=== PATIENT | female | born 1990 | race Caucasian/White ===

== ENCOUNTER 2018-10-26 17:02 | Emergency (ER) | payer OTHER ==
[2018-10-26] MEDS ORDERED: NORMAL SALINE 1000 ML 1,000 ML IV ONE (18:42)
[2018-10-26] MEDS ORDERED: ONDANSETRON HCL INJ/PF 4 MG/2 ML SDV IV ONE (18:42)
--- NOTE | 2018-10-26 18:43 | ER Document Report ---
ED Medical Screen (RME) - General Chief Complaint: Flank Pain Stated Complaint: STOMACH PAIN Time Seen by Provider: 10/26/18 18:42 Notes: Patient is a morbidly obese 27-year-old female presents to the emergency department with general abdominal pain Since Saturday. States it is "everywhere." Patient states she had multiple episodes of vomiting and diarrhea denying blood in both. Patient's denying any fever or vaginal discharge. She is complaining of some generalized lower back pain and dysuria. Patient does have a history of a cholecystectomy, appendectomy, 3 surgeries for endometriosis. States she also has a history of pancreatitis. States this does not feel like her endometriosis because her pain is not in her pelvic region. Patient is unsure of her last menstrual cycle she has an IUD. GENERAL: Alert, interacts well. No acute distress. ABDOMEN: Soft, Non-distended. Bowel sounds present in all 4 quadrants. Generalized tenderness noted all 4 quadrants BACK: no cervical, thoracic, lumbar midline tenderness. No saddle anesthesia, normal distal neurovascular exam. I have greeted and performed a rapid initial assessment of this patient. A comprehensive ED assessment and evaluation of the patient, analysis of test results and completion of the medical decision making process will be conducted by additional ED providers. I have specifically instructed the patient or family members with the patient to immediately return to any nursing staff should anything change in the patient's condition or with their chief complaint. This medical record was dictated with voice recognizing software. There may be grammatical, syntax errors that are unintended. TRAVEL OUTSIDE OF THE [place] IN LAST 30 DAYS: No - Related Data Allergies/Adverse Reactions: No Known Allergies Allergy (Verified 10/26/18 17:16) Physical Exam - Vital signs Vitals: Temp Pulse Resp BP Pulse Ox 98.3 F 82 15 133/80 H 97 10/26/18 17:19 10/26/18 17:19 10/26/18 17:19 10/26/18 17:19 10/26/18 17:19 Course - Vital Signs Vital signs: Temp Pulse Resp BP Pulse Ox 98.3 F 82 15 133/80 H 97 10/26/18 17:19 10/26/18 17:19 10/26/18 17:19 10/26/18 17:19 10/26/18 17:19
[2018-10-26 19:29] LABS: ABSOLUTE BASOPHILS # (AUTO) 0.1 10^3/uL (0.0-0.2); ABSOLUTE EOSINOPHILS # (AUTO) 0.1 10^3/uL (0.0-0.6); ABSOLUTE MONOCYTES (AUTO) 0.6 10^3/uL (0.1-1.4); ABSOLUTE NEUT (AUTO) 4.5 10^3/uL (1.7-8.2); BASOPHILS % (AUTO) 0.8 % (0-2); EOSINOPHILS % (AUTO) 1.3 % (0-6); LYMPHOCYTES % (AUTO) 36.3 % (13-45); MEAN CORPUSCULAR HEMOGLOBIN 29.7 pg (27.0-33.4); MEAN CORPUSCULAR HGB CONC 33.4 g/dL (32.0-36.0); MEAN CORPUSCULAR VOLUME 89 fl (80-97); MONOCYTES % (AUTO) 6.8 % (3-13); PLATELET COUNT 309 10^3/uL (150-450); RED BLOOD COUNT 5.06 10^6/uL (3.72-5.28); RED CELL DISTRIBUTION WIDTH 13.9 % (11.5-14.0); SEGMENTED NEUTROPHILS % (AUTO) 54.8 % (42-78); TOTAL CELLS COUNTED % (AUTO) 100 %; WHITE BLOOD COUNT 8.1 10^3/uL (4.0-10.5)
[2018-10-26 19:39] LABS: AMORPHOUS SEDIMENT,URINE TRACE /HPF; APPEARANCE,URINE SLIGHTLY-CLOUDY; BILIRUBIN,URINE NEGATIVE (NEGATIVE); COLOR,URINE YELLOW; GLUCOSE, URINE NEGATIVE (NEGATIVE); KETONES,URINE NEGATIVE (NEGATIVE); LEUKOCYTE ESTERASE,URINE TRACE (NEGATIVE); NITRITE,URINE NEGATIVE (NEGATIVE); PROTEIN,URINE NEGATIVE (NEGATIVE); URINE SPECIFIC GRAVITY 1.016; UROBILINOGEN,URINE NEGATIVE mg/dL (<2.0)
[2018-10-26 19:45] LABS: ALANINE AMINOTRANSFERASE 21 U/L (9-52); ALBUMIN 4.7 g/dL (3.5-5.0); ALKALINE PHOSPHATASE 85 U/L (38-126); ANION GAP 9 (5-19); ASPARTATE AMINO TRANSFERASE 20 U/L (14-36); BILIRUBIN,DIRECT 0.2 mg/dL (0.0-0.4); BILIRUBIN,TOTAL 0.3 mg/dL (0.2-1.3); BLOOD UREA NITROGEN 12 mg/dL (7-20); CALCIUM 9.9 mg/dL (8.4-10.2); CARBON DIOXIDE 24 mmol/L (22-30); CHLORIDE 108 mmol/L (98-107); GLUCOSE 104 mg/dL (75-110); LIPASE 110.6 U/L (23-300); POTASSIUM 4.2 mmol/L (3.6-5.0); SODIUM 141.3 mmol/L (137-145); TOTAL PROTEIN 7.7 g/dL (6.3-8.2)
[2018-10-26] MEDS ORDERED: KETOROLAC TROMETHAMINE INJ/PF 30 MG/1 ML SDV IV ONE (21:17)
[2018-10-26] MEDS ORDERED: DICYCLOMINE HCL INJ 20 MG/2 ML AMPULE IM ONE (21:17)
[2018-10-26] MEDS ORDERED: CIPROFLOXACIN HCL 500 MG TABLET PO ONE (21:18)
[2018-10-26] MEDS ORDERED: ONDANSETRON ODT 4 MG TAB (6 TAB/ER DISP) PO PRN (21:20)
--- NOTE | 2018-10-26 21:21 | ER Document Report ---
ED General - General Chief Complaint: Flank Pain Stated Complaint: STOMACH PAIN Time Seen by Provider: 10/26/18 18:42 Primary Care Provider: GABY VALADEZ MD [Primary Care Provider] - Follow up in 3-5 days Notes: Patient is a 27-year-old female with past medical history of endometriosis, prior surgical history of appendectomy, cholecystectomy, 3 separate surgeries for her endometriosis who presents with 1 week of generalized abdominal cramping, nausea, vomiting and diarrhea. States that her symptoms started gra dually, but ongoing since that time. Nothing seems to improve or worsen her symptoms. States that she has been able to tolerate oral intake in between her episodes of vomiting. No melena, hematochezia or hematemesis. Describes abdominal cramping as being a moderate to severe intensity, generalized in nature. Has not seen her primary care physician regarding today's concerns. Denies any history of similar symptoms in the past. No fever or constitutional symptoms. No known history of similar symptoms in the past. TRAVEL OUTSIDE OF THE [place] IN LAST 30 DAYS: No - Related Data Allergies/Adverse Reactions: No Known Allergies Allergy (Verified 10/26/18 17:16) Past Medical History - General Information source: Patient - Social History Smoking Status: Never Smoker Chew tobacco use (# tins/day): No Frequency of alcohol use: Rare Drug Abuse: None Lives with: Spouse/Significant other Family History: Reviewed & Not Pertinent Patient has suicidal ideation: No Patient has homicidal ideation: No Renal/ Medical History: Denies: Hx Peritoneal Dialysis GI Medical History: Reports: Hx Gastroesophageal Reflux Disease Psychiatric Medical History: Reports: Hx Depression - anxiety Past Surgical History: Reports: Hx Appendectomy, Hx Cholecystectomy, Hx Gynecologic Surgery - ablation x 2, Hx Orthopedic Surgery - cyst from left wrist, Hx Tonsillectomy - t and a Review of Systems - Review of Systems Notes: Constitutional: Negative for fever. HENT: Negative for sore throat. Eyes: Negative for visual changes. Cardiovascular: Negative for chest pain. Respiratory: Negative for shortness of breath. Gastrointestinal: Positive for abdominal pain, diarrhea, vomiting Genitourinary: Negative for dysuria. Musculoskeletal: Negative for back pain. Skin: Negative for rash. Neurological: Negative for headaches, weakness or numbness. 10 point ROS negative except as marked above and in HPI. Physical Exam - Vital signs Vitals: Temp Pulse Resp BP Pulse Ox 98.3 F 82 15 133/80 H 97 10/26/18 17:19 10/26/18 17:19 10/26/18 17:19 10/26/18 17:19 10/26/18 17:19 Interpretation: Normal Notes: PHYSICAL EXAMINATION: GENERAL: Well-appearing, well-nourished and in no acute distress. HEAD: Atraumatic, normocephalic. EYES: Pupils equal round and reactive to light, extraocular movements intact, sclera anicteric, conjunctiva are normal. ENT: nares patent, oropharynx clear without exudates. Moderately dry mucous membranes. NECK: Normal range of motion, supple without lymphadenopathy LUNGS: Breath sounds clear to auscultation bilaterally and equal. No wheezes rales or rhonchi. HEART: Regular rate and rhythm without murmurs ABDOMEN: Soft, mild diffuse global tenderness, normoactive bowel sounds. No guarding, no rebound. No masses appreciated. EXTREMITIES: Normal range of motion, no pitting or edema. No cyanosis. NEUROLOGICAL: No focal neurological deficits. Moves all extremities spontaneously and on command. PSYCH: Normal mood, normal affect. SKIN: Warm, Dry, normal turgor, no rashes or lesions noted. Course - Re-evaluation Re-evalutation: 10/26/18 21:20 Presentation of an overall well-appearing patient in no acute distress with complaints of nausea, vomiting, diarrhea, and generalized abdominal cramping. Patient has no abdominal tenderness on exam and specifically no tenderness in the RLQ, LLQ, RUQ. Overall well hydrated on exam. Able to tolerate oral intake here in the emergency department. Low clinical suspicion for any acute life-threatening etiology based on exam and history. Patient is a remote history of an appendectomy and cholecystectomy removing the same differential. Lipase normal. Do not clinically suspect bowel obstruction or perforation based on exam and history. CMP without evidence of acute hepatitis or significant dehydration. I have had a risks and benefits conversation with the patient regarding CT imaging of the abdomen and pelvis at this time. We discussed, based on today's exam and labs there is a possibility that they could have a diagnosis that could be better clarified by CT and that this could possibly tire changer. We discussed the risks of radiation to the abdomen and pelvis. We discussed the alternative of close follow-up with their primary care physician for a recheck of the abdomen within 24 hours as well as reasons to return to the emergency department. After this conversation, the patient has elected to avoid CT imaging of the abdomen and pelvis at this time. They have capacity. They have verbalized the importance of close follow-up as well as reasons to return to the emergency department including worsening abdominal pain, fever, persistent vomiting, or any other symptoms that are worrisome to them. - Vital Signs Vital signs: Temp Pulse Resp BP Pulse Ox 97.5 F 69 20 124/74 100 10/26/18 21:35 10/26/18 21:35 10/26/18 21:35 10/26/18 21:35 10/26/18 21:35 - Laboratory Result Diagrams: 10/26/18 19:13 10/26/18 19:13 Laboratory results interpreted by me: 10/26/18 10/26/18 18:55 19:13 Chloride 108 H Ur Leukocyte Esterase TRACE H Discharge - Discharge Clinical Impression: Generalized abdominal cramping, Nausea vomiting and diarrhea Condition: Good Disposition: HOME, SELF-CARE Additional Instructions: You were seen today for abdominal pain, vomiting diarrhea. As we discussed, this may be related to an underlying colonic infection versus your irritable bowel syndrome. Please take antibodies as prescribed. Use Levsin as needed for abdominal cramping. You can take [id number] loperamide also known as Imodium as needed for diarrhea per box instructions. Continue to stay hydrated with plenty of solution such as Gatorade or Pedialyte. You are being prescribed Zofran to take as needed for nausea and vomiting. Please return if you develop worsening abdominal pain, your abdominal pain fails to resolve, you pass out, develop fever greater than 100.4 F, become unable to tolerate any oral fluids for 12 more hours, or any other symptoms that are concerning to you. Follow-up with your primary care physician within 24 to 48 hours. Prescriptions: Ciprofloxacin HCl [Cipro 500 mg Tablet] 500 mg PO BID #6 tablet Hyoscyamine Sulfate [Levsin 0.125 Tablet] 0.125 mg PO TID PRN #30 tablet PRN Reason: Referrals: GABY VALADEZ MD [Primary Care Provider] - Follow up in 3-5 days
[2018-10-26 21:35] VITALS: BP 124/74
== END 2018-10-26 22:16 | disposition home or self-care (01) ==
LOC: ER 17:02
DX: R10.84 Generalized abdominal pain (principal); R11.2 Nausea with vomiting, unspecified; R19.7 Diarrhea, unspecified
CPT/HCPCS: 99284; 96372; 96361; 96374; 96375; 36415; 87086; 83690; 85025; 81025; 87088; 80053; 81001; J0500; J1885; J2405; J7030

== ENCOUNTER 2019-07-12 15:31 | Emergency (ER) | payer OTHER ==
[2019-07-12] MEDS ORDERED: ONDANSETRON 4 MG TAB.RAPDIS PO ONE (15:40)
--- NOTE | 2019-07-12 15:41 | ER Document Report ---
ED Medical Screen (RME) - General Chief Complaint: Nausea/Vomiting/Diarrhea Stated Complaint: DIARRHEA/VOMITING Time Seen by Provider: 07/12/19 15:36 Primary Care Provider: GABY VALADEZ MD [Primary Care Provider] - Follow up as needed Mode of Arrival: Ambulatory Information source: Patient Notes: 28-year-old female presents with complaints of nausea vomiting diarrhea since yesterday. Reports also abdominal cramps denies fever. Denies past medical history of chronic abdominal issues. Denies history of C. difficile. Reports she had her IUD removed last week but doubtful of being . I have greeted and performed a rapid initial assessment of this patient. A comprehensive ED assessment and evaluation of the patient, analysis of test results and completion of the medical decision making process will be conducted by additional ED providers. TRAVEL OUTSIDE OF THE [place] IN LAST 30 DAYS: No - Related Data Allergies/Adverse Reactions: No Known Allergies Allergy (Verified 07/12/19 15:35) Past Medical History - Social History Chew tobacco use (# tins/day): No Frequency of alcohol use: Occasional Drug Abuse: None Renal/ Medical History: Denies: Hx Peritoneal Dialysis GI Medical History: Reports: Hx Gastroesophageal Reflux Disease Psychiatric Medical History: Reports: Hx Depression - anxiety Past Surgical History: Reports: Hx Appendectomy, Hx Cholecystectomy, Hx Gynecologic Surgery - ablation x 2, Hx Orthopedic Surgery - cyst from left wrist, Hx Tonsillectomy - t and a Doctor's Discharge - Discharge Referrals: GABY VALADEZ MD [Primary Care Provider] - Follow up as needed
[2019-07-12] MEDS ORDERED: NORMAL SALINE 1000 ML 1,000 ML IV ONE (16:20)
[2019-07-12] MEDS ORDERED: KETOROLAC TROMETHAMINE INJ/PF 30 MG/1 ML SDV IV ONE (16:21)
[2019-07-12] MEDS ORDERED: ONDANSETRON HCL INJ/PF 4 MG/2 ML SDV IV ONE (16:21)
--- NOTE | 2019-07-12 16:22 | ER Document Report ---
ED GI/ - General Chief Complaint: Nausea/Vomiting/Diarrhea Stated Complaint: DIARRHEA/VOMITING Time Seen by Provider: 07/12/19 15:36 Primary Care Provider: GABY VALADEZ MD [Primary Care Provider] - Follow up as needed Mode of Arrival: Ambulatory Information source: Patient Notes: 28-year-old woman presents to the emergency department with a complaint of nausea vomiting and diarrhea. She began having symptoms yesterday afternoon and and now cramping abdominal pain and profuse diarrhea. She is taking Lyrica for endometriosis and arthritis, Prozac for depression anxiety and has not been able to take her medications today due to the symptoms. She rates her pain 6/10. TRAVEL OUTSIDE OF THE [place] IN LAST 30 DAYS: No - Related Data Allergies/Adverse Reactions: No Known Allergies Allergy (Verified 07/12/19 15:35) Past Medical History - General Information source: Patient - Social History Smoking Status: Never Smoker Chew tobacco use (# tins/day): No Frequency of alcohol use: Occasional Drug Abuse: None Family History: Reviewed & Not Pertinent Patient has suicidal ideation: No Patient has homicidal ideation: No Renal/ Medical History: Denies: Hx Peritoneal Dialysis GI Medical History: Reports: Hx Gastroesophageal Reflux Disease Psychiatric Medical History: Reports: Hx Depression - anxiety Past Surgical History: Reports: Hx Appendectomy, Hx Cholecystectomy, Hx Gynecologic Surgery - ablation x 2, Hx Orthopedic Surgery - cyst from left wrist, Hx Tonsillectomy - t and a Review of Systems - Review of Systems Notes: Constitutional: Negative for fever. HENT: Negative for sore throat. Eyes: Negative for visual changes. Cardiovascular: Negative for chest pain. Respiratory: Negative for shortness of breath. Gastrointestinal: No nausea, + vomiting, + abdominal cramping pain Genitourinary: Negative for dysuria. Musculoskeletal: Negative for back pain. Skin: Negative for rash. Neurological: Negative for headaches, weakness or numbness. 10 point ROS negative except as marked above and in HPI. Physical Exam - Vital signs Vitals: Temp Pulse Resp BP Pulse Ox 98.6 F 78 20 140/95 H 97 07/12/19 15:35 07/12/19 15:35 07/12/19 15:35 07/12/19 15:35 07/12/19 15:35 - Notes Notes: PHYSICAL EXAMINATION: Physical Exam: General: Well-nourished well-developed woman complaining of cramping abdominal pain. HEENT: NC/AT, pupils equal round and reactive to light, MM moist,nares clear, oropharynx clear, airway patent Neck: supple, no adenopathy, no masses. Good range of motion Lungs: clear, no wheezing, no rales no rhonchi CVS: Regular rate and rhythm no murmur gallop or rub Abdomen: Soft, + hyperactive bowel sounds, nontender, no masses, no hepatosplenomegaly Ext: No edema, clubbing or cyanosis. Neuro: Alert and responsive, moving all 4 extremities on command, cranial nerves intact, no focal findings Skin: Intact no open lesions, no rash PSYCH: Normal mood, normal affect. Course - Re-evaluation Re-evalutation: 07/12/19 20:28 Patient was given IV fluids, Zofran, IV Toradol for pain and symptoms have improved. Urinalysis reveals UTI. Patient was given 1 g of Rocephin IV. I am going to continue her on Keflex as an outpatient I encouraged her to push fluids use Zofran for nausea and hold off on eating heavy foods, fried foods or meats until the diarrhea has discontinued the patient appears to understand this plan and states that she is ready for discharge. - Vital Signs Vital signs: Temp Pulse Resp BP Pulse Ox 98.2 F 87 20 114/58 L 98 07/12/19 19:47 07/12/19 19:47 07/12/19 19:47 07/12/19 19:47 07/12/19 19:47 - Laboratory Result Diagrams: 07/12/19 15:55 07/12/19 15:55 Laboratory results interpreted by me: 07/12/19 07/12/19 07/12/19 15:55 15:55 17:30 Hgb 15.6 H Calcium 10.5 H Total Protein 8.3 H Urine Protein 30 H Urine Ketones TRACE H Urine Blood SMALL H Ur Leukocyte Esterase MODERATE H I have reviewed laboratory data and used this information for the treatment decisions regarding the patient. Discharge - Discharge Clinical Impression: Enteritis, Nausea vomiting and diarrhea UTI (urinary tract infection) Qualifiers: Urinary tract infection type: site unspecified Hematuria presence: without emy turia Qualified Code(s): N39.0 - Urinary tract infection, site not specified Condition: Good Disposition: HOME, SELF-CARE Instructions: Urinary Tract Infection ([facility]), Cephalexin ([facility]), Antinausea Me dication ([facility]) Additional Instructions: Use Zofran for nausea, Bentyl for cramping, take the Keflex as prescribed for your urinary tract infection. Push fluids, Gatorade qian dc Sprite or water. Avoid eating greasy fried or heavy foods while the diarrhea has continued. HOME CARE INSTRUCTIONS & INFORMATION: Thank you for choosing us for your medical needs. We hope you're satisfied with the care you received. After you leave, you must properly care for your problem and, at the same time, observe its progress. Any condition can change. Some illnesses can change rapidly over hours or days. If your condition worsens, return to the Emergency Department or see your physician promptly. ABOUT YOUR X-RAYS AND EKG'S: If you had an EKG or X-rays taken, they have been read by the Emergency Physician. The X-rays and EKG's will also be read by a Radiologist or Wafer Production Lead Worker within 24 hours. If discrepancies are noted, you will be notified by telephone. Please be certain the ED has a correct telephone number & address where you can be reached. Also, realize that some fractures or abnormalities do not show up on initial X-rays. If your symptoms continue, see your physician. ABOUT YOUR LABORATORY TEST: If you had laboratory tests, the results have been reviewed by the Emergency Physician. Some test results (for example cultures) may not be available for several days. You will be contacted if any test result shows you need additional treatment. Please be certain the ED has a correct telephone number and address where you can be reached. ABOUT YOUR MEDICATIONS: You will receive instructions on how to take your medicine on the prescription label you receive. Additional information may be provided by the Pharmacy. If you have questions afterwards, call the ED for clarification or further instructions. Some prescribed medications may cause drowsiness. Do not perform tasks such as driving a car or operating machinery without consulting your Pharmacist. If you feel you need a refill of pain medication, your condition will need re-evaluation. Please do not call for a refill of any medication. ABOUT YOUR SIGNATURE: Signature of this document acknowledges to followin. Understanding that you received emergency treatment and that you may be released before al medical problems are known or treated. Please be certain the ED has a correct phone number & address where you can be reached. 2. Acknowledgement that you will arrange for follow-up care as recommended. 3. Authorization for the Emergency Physician to provide information to your follow-up Physician in order to maximize your care. AT ANY TIME, IF YOUR SYMPTOMS CHANGE SIGNIFICANTLY OR WORSEN OR YOU DEVELOP NEW SYMPTOMS, RETURN TO THE EMERGENCY DEPARTMENT IMMEDIATELY FOR RE-EVALUATION. OUR GOAL IS TO PROVIDE EXCELLENT MEDICAL CARE! WE HOPE THAT WE HAVE MET YOUR EXPECTATIONS DURING YOUR EMERGENCY DEPARTMENT VISIT AND THAT YOU FEEL YOU HAVE RECEIVED EXCELLENT CARE! Prescriptions: Ondansetron [Zofran Odt 4 mg Tablet] 1 - 2 tab PO Q4HP PRN #10 tab.rapdis PRN Reason: Cephalexin Monohydrate [Keflex 500 mg Capsule] 500 mg PO Q6H 10 Days capsule Referrals: GABY VALADEZ MD [Primary Care Provider] - Follow up as needed
[2019-07-12 16:32] LABS: ABSOLUTE LYMPHOCYTES (AUTO) 1.4 10^3/uL (0.5-4.7); ABSOLUTE MONOCYTES (AUTO) 0.4 10^3/uL (0.1-1.4); BASOPHILS % (AUTO) 0.3 % (0-2); EOSINOPHILS % (AUTO) 0.4 % (0-6); HEMATOCRIT 46.6 % (36.0-47.0); HEMOGLOBIN 15.6 g/dL (12.0-15.5); LYMPHOCYTES % (AUTO) 17.5 % (13-45); MEAN CORPUSCULAR HEMOGLOBIN 30.1 pg (27.0-33.4); MEAN CORPUSCULAR HGB CONC 33.5 g/dL (32.0-36.0); MEAN CORPUSCULAR VOLUME 90 fl (80-97); MONOCYTES % (AUTO) 5.7 % (3-13); PLATELET COUNT 361 10^3/uL (150-450); SEGMENTED NEUTROPHILS % (AUTO) 76.1 % (42-78); TOTAL CELLS COUNTED % (AUTO) 100 %; WHITE BLOOD COUNT 7.9 10^3/uL (4.0-10.5)
[2019-07-12 16:53] LABS: ALBUMIN 4.7 g/dL (3.5-5.0); ALKALINE PHOSPHATASE 87 U/L (38-126); ANION GAP 12 (5-19); ASPARTATE AMINO TRANSFERASE 29 U/L (14-36); BILIRUBIN,DIRECT 0.3 mg/dL (0.0-0.4); BILIRUBIN,TOTAL 0.6 mg/dL (0.2-1.3); BLOOD UREA NITROGEN 13 mg/dL (7-20); CALCIUM 10.5 mg/dL (8.4-10.2); CARBON DIOXIDE 25 mmol/L (22-30); CHLORIDE 103 mmol/L (98-107); GLUCOSE 92 mg/dL (75-110); POTASSIUM 4.5 mmol/L (3.6-5.0); TOTAL PROTEIN 8.3 g/dL (6.3-8.2)
[2019-07-12 17:52] LABS: AMORPHOUS SEDIMENT,URINE TRACE /HPF; APPEARANCE,URINE CLOUDY; BILIRUBIN,URINE NEGATIVE (NEGATIVE); COLOR,URINE YELLOW; GLUCOSE, URINE NEGATIVE (NEGATIVE); KETONES,URINE TRACE mg/dL (NEGATIVE); LEUKOCYTE ESTERASE,URINE MODERATE (NEGATIVE); NITRITE,URINE NEGATIVE (NEGATIVE); PROTEIN,URINE 30 mg/dL (NEGATIVE); URINE SPECIFIC GRAVITY 1.028; UROBILINOGEN,URINE NEGATIVE mg/dL (<2.0)
[2019-07-12] MEDS ORDERED: CEFTRIAXONE INJ 1000 MG VIAL IV ONE ×2 (18:03→18:41)
[2019-07-12 19:50] VITALS: BP 114/58
== END 2019-07-12 20:57 | disposition home or self-care (01) ==
LOC: ER 15:31
DX: K52.9 Noninfective gastroenteritis and colitis, unspecified (principal); N39.0 Urinary tract infection, site not specified; R11.2 Nausea with vomiting, unspecified; R10.9 Unspecified abdominal pain; N80.9 Endometriosis, unspecified; M19.90 Unspecified osteoarthritis, unspecified site; F32.9 Major depressive disorder, single episode, unspecified; F41.9 Anxiety disorder, unspecified; Z79.899 Other long term (current) drug therapy; Z90.49 Acquired absence of other specified parts of digestive tract; Z87.19 Personal history of other diseases of the digestive system
CPT/HCPCS: 99284; 96361; 96375; 96365; 36415; 85025; 81025; 80053; 81001; S0119; J1885; J0696; J2405; J7030

== ENCOUNTER 2019-09-20 13:56 | Emergency (ER) | payer OTHER ==
[2019-09-20] MEDS ORDERED: NORMAL SALINE 1000 ML 1,000 ML IV ONE (14:39)
[2019-09-20] MEDS ORDERED: METOCLOPRAMIDE HCL INJ/PF 10 MG/2 ML SDV IV ONE (14:40)
[2019-09-20] MEDS ORDERED: KETOROLAC TROMETHAMINE INJ/PF 30 MG/1 ML SDV IV ONE (14:40)
[2019-09-20] MEDS ORDERED: FAMOTIDINE INJ/PF 20 MG/2 ML SDV IV ONE (14:40)
--- NOTE | 2019-09-20 14:48 | ER Document Report ---
ED General - General Chief Complaint: Abdominal Pain Stated Complaint: CHEST PAIN/ABDOMINAL PAIN/NAUSEA/VOMITING Time Seen by Provider: 09/20/19 14:27 Primary Care Provider: GABY VALADEZ MD [Primary Care Provider] - Follow up as needed TRAVEL OUTSIDE OF THE [place] IN LAST 30 DAYS: No - HPI Notes: Chief complaint: Nausea, vomiting, diarrhea, generalized weakness, tingling of upper extremities, chest pain and abdominal pain HPI: 28-year-old female with multiple prior surgical procedures of the abdomen, history of endometriosis, irritable bowel syndrome and chronic pain syndrome on multiple medications presents today with recurrent symptoms as noted above. No fever or chills. No known exposure to ill individuals. Denies travel outside the area or known exposure to COVID virus. No dysuria. Normal last menses 3 weeks ago. Previous abdominal surgery has included surgery for endometriosis, appendectomy and cholecystectomy. - Related Data Allergies/Adverse Reactions: No Known Allergies Allergy (Verified 09/20/19 15:44) Past Medical History - General Information source: Patient, [facility] Records - Social History Smoking Status: Never Smoker Frequency of alcohol use: Social Drug Abuse: None Lives with: Family Family History: Reviewed & Not Pertinent - Past Medical History Cardiac Medical History: Reports: None Pulmonary Medical History: Reports: None Neurological Medical History: Reports: None Endocrine Medical History: Reports: None Renal/ Medical History: Reports: Other - Endometriosis. Denies: Hx Peritoneal Dialysis Malignancy Medical History: Reports: None GI Medical History: Reports: Hx Gastroesophageal Reflux Disease, Hx Irritable Bowel Musculoskeletal Medical History: Reports Hx Arthritis Psychiatric Medical History: Reports: Hx Depression - anxiety Past Surgical History: Reports: Hx Appendectomy, Hx Cholecystectomy, Hx Gynecologic Surgery - ablation x 2, Hx Orthopedic Surgery - cyst from left wrist, Hx Tonsillectomy - t and a Review of Systems - Review of Systems Notes: Constitutional: Negative for fever. HENT: Negative for sore throat. Eyes: Negative for visual changes. Cardiovascular: As per HPI. Respiratory: Negative for shortness of breath. Gastrointestinal: As per HPI. Genitourinary: As per HPI. Musculoskeletal: Negative for back pain. Skin: Negative for rash. Neurological: Negative for headaches, weakness or numbness. 10 point ROS negative except as marked above and in HPI. Physical Exam - Vital signs Vitals: Temp Pulse Resp BP Pulse Ox 98.4 F 61 16 121/70 98 05/17/20 14:00 09/20/19 14:00 09/20/19 14:00 09/20/19 14:00 09/20/19 14:00 - Notes Notes: Remote Exam Using Telemedicine System GENERAL: Mildly obese female approximately stated age who does not appear toxic. SKIN: no rashes. HEAD: Normocephalic atraumatic. EYES: PERRL. EOMI. Conjunctivae and sclerae clear. NOSE: CLEAR. MOUTH: Moist mucosa. Good dentition. No stridor or edema. No drooling. NECK: Full ROM. No visible masses or thyromegaly. No JVD. BACK: Symmetrical. CHEST: Respirations unlabored. Expands symmetrical. ABDOMEN: Mildly obese. Non-distended. Mild epigastric tenderness when I have the patient presses area. GENITALIA: Deferred. EXTREMITIES: No edema. NEUROLOGICAL: GCS 15. Alert and oriented x3. Normal gait. Fluent speech. Cranial nerves II through XII intact. Motor and cerebellar normal. PSYCHIATRIC: Flat anxious affect. Course - Re-evaluation Re-evalutation: 09/20/19 16:40 Patient has a long history of chronic recurrent episodes of abdominal pain and vomiting and has a longstanding history of endometriosis. Labs here today are unremarkable. She was given some IV fluid and some IV Toradol and metoclopramide. She feels somewhat better. She has no fever. She does not have a surgical abdomen by exam. She has had previous cholecystectomy and appendectomy. We will discharge for outpatient follow-up with PMD within 24 hours and return here as needed for new or worsening symptoms. - Vital Signs Vital signs: Temp Pulse Resp BP Pulse Ox 98.2 F 78 18 124/78 98 09/20/19 16:03 09/20/19 16:03 09/20/19 16:03 09/20/19 16:03 09/20/19 16:03 - Laboratory Laboratory results interpreted by me: 09/20/19 14:10 Leukocyte Esterase Rfl TRACE H Discharge - Discharge Clinical Impression: Dehydration, Endometriosis Vomiting Qualifiers: Vomiting type: unspecified Vomiting Intractability: non-intractable Nausea presence: with nausea Qualified Code(s): R11.2 - Nausea with vomiting, unspecified Condition: Stable Disposition: HOME, SELF-CARE Instructions: Abdominal Pain ([facility]), Vomiting ([facility]) Prescriptions: Metoclopramide HCl [Reglan 10 mg Tablet] 10 mg PO ACHS #120 tablet Referrals: GABY VALADEZ MD [Primary Care Provider] - Follow up as needed
[2019-09-20 15:11] LABS: APPEARANCE,URINE CLEAR; BILIRUBIN,URINE NEGATIVE (NEGATIVE); COLOR,URINE STRAW; GLUCOSE, URINE NEGATIVE (NEGATIVE); KETONES,URINE NEGATIVE (NEGATIVE); PROTEIN,URINE NEGATIVE (NEGATIVE); URINE SPECIFIC GRAVITY 1.006; UROBILINOGEN,URINE NEGATIVE mg/dL (<2.0)
[2019-09-20 15:28] LABS: URINE AMPHETAMINES SCREEN NEGATIVE; URINE BARBITURATES SCREEN NEGATIVE; URINE BENZODIAZEPINES SCREEN NEGATIVE; URINE COCAINE SCREEN NEGATIVE; URINE MARIJUANA (THC) SCREEN NEGATIVE; URINE METHADONE SCREEN NEGATIVE; URINE PHENCYCLIDINE SCREEN NEGATIVE
[2019-09-20 16:47] LABS: ABSOLUTE EOSINOPHILS # (AUTO) 0.1 10^3/uL (0.0-0.6); ABSOLUTE LYMPHOCYTES (AUTO) 2.9 10^3/uL (0.5-4.7); ABSOLUTE MONOCYTES (AUTO) 0.7 10^3/uL (0.1-1.4); ABSOLUTE NEUT (AUTO) 4.3 10^3/uL (1.7-8.2); BASOPHILS % (AUTO) 0.5 % (0-2); EOSINOPHILS % (AUTO) 1.1 % (0-6); HEMATOCRIT 44.2 % (36.0-47.0); LYMPHOCYTES % (AUTO) 35.9 % (13-45); MEAN CORPUSCULAR HEMOGLOBIN 30.8 pg (27.0-33.4); MEAN CORPUSCULAR VOLUME 90 fl (80-97); MONOCYTES % (AUTO) 8.5 % (3-13); PLATELET COUNT 307 10^3/uL (150-450); RED BLOOD COUNT 4.89 10^6/uL (3.72-5.28); RED CELL DISTRIBUTION WIDTH 14.8 % (11.5-14.0); TOTAL CELLS COUNTED % (AUTO) 100 %
[2019-09-20 16:59] VITALS: BP 106/51
--- NOTE | 2019-09-20 22:19 | EKG REPORT ---
SEVERITY:- NORMAL ECG - SINUS RHYTHM : Confirmed by: Jameson Lima 20-Sep-2019 22:18:47
== END 2019-09-20 16:59 | disposition home or self-care (01) ==
LOC: ER 13:56
DX: E86.0 Dehydration (principal); N80.9 Endometriosis, unspecified; R11.2 Nausea with vomiting, unspecified; R10.9 Unspecified abdominal pain; R07.9 Chest pain, unspecified; R53.1 Weakness; R20.0 Anesthesia of skin; G89.4 Chronic pain syndrome; E66.9 Obesity, unspecified; R10.13 Epigastric pain; Z90.49 Acquired absence of other specified parts of digestive tract; Z98.890 Other specified postprocedural states
CPT/HCPCS: 93005; 99284; 96361; 96374; 96375; 36415; 83735; 84703; 85025; 81001; 80307; 93010; J1885; J2765; J7030; S0028

== ENCOUNTER 2020-05-17 15:10 | Emergency (ER) | payer OTHER ==
--- NOTE | 2020-05-17 16:02 | ER Document Report ---
ED Medical Screen (RME) - General Chief Complaint: Ear Pain Stated Complaint: NECK,JAW,SHOULDER PAIN Primary Care Provider: NAV UP PA-C [Primary Care Provider] - Follow up as needed TRAVEL OUTSIDE OF THE [place] IN LAST 30 DAYS: No - HPI Notes: 05/17/20 15:58 Rapid Medical Exam HPI: This is a 29-year-old female who presents to the ER complaining of right facial and neck pain for multiple days. Denies injury or trauma. Says she has some intermittent blurry vision to the right eye since resolved. No other neurologic deficits. Denies difficulty with opening her mouth or chewing. She went to her PCP and evaluated her but they did not feel that it was TMJ dysfunction. Patient says she has been taking Motrin and her prescription Lyrica without any relief and is unable to sleep due to the pain. No history of trigeminal neuralgia. Physical Exam: GENERAL: Well-appearing, well-nourished and in no acute distress. HEAD: Atraumatic, normocephalic. ENT: Moist mucous membranes. RESP: Respirations even and unlabored CV- Regular rate. NEURO: No focal neurological deficits. Moves all extremities spontaneously and on command. My involvement in this patients care was limited to a rapid initial assessment. A comprehensive ED assessment and evaluation of the patient, analysis of test results, treatment, and completion of the medical decision making process will be performed by other ER providers. - Related Data Allergies/Adverse Reactions: No Known Allergies Allergy (Verified 09/20/19 15:44) Home Medications: lyrica 75 mg TID, flexeril 5 mg PRN, esomeprazole mag, topiramate 50mg qhsbuspirone 15mg bid, fluoxetine 20mg daily, cyclobenzapr 5 mg bid prn, Past Medical History - Social History Chew tobacco use (# tins/day): No Frequency of alcohol use: Rare Drug Abuse: None Renal/ Medical History: Denies: Hx Peritoneal Dialysis GI Medical History: Reports: Hx Gastroesophageal Reflux Disease, Hx Irritable B owel Musculoskeltal Medical History: Reports Hx Arthritis Psychiatric Medical History: Reports: Hx Depression - anxiety Past Surgical History: Reports: Hx Appendectomy, Hx Cholecystectomy, Hx Gynecologic Surgery - ablation x 2, Hx Orthopedic Surgery - cyst from left wrist, Hx Tonsillectomy - t and a Physical Exam - Vital signs Vitals: Temp Pulse Resp BP Pulse Ox 98.1 F 99 18 128/99 H 98 05/17/20 15:15 05/17/20 15:15 05/17/20 15:15 05/17/20 15:15 05/17/20 15:15 Course - Vital Signs Vital signs: Temp Pulse Resp BP Pulse Ox 98.1 F 99 18 128/99 H 98 05/17/20 15:15 05/17/20 15:15 05/17/20 15:15 05/17/20 15:15 05/17/20 15:15 Doctor's Discharge - Discharge Referrals: NAV UP PA-C [Primary Care Provider] - Follow up as needed
[2020-05-17 16:28] LABS: HEMATOCRIT 43.2 % (36.0-47.0); TOTAL CELLS COUNTED % (AUTO) 100 %
[2020-05-17 16:31] LABS: ABSOLUTE EOSINOPHILS # (AUTO) 0.1 10^3/uL (0.0-0.6); ABSOLUTE LYMPHOCYTES (AUTO) 2.2 10^3/uL (0.5-4.7); ABSOLUTE MONOCYTES (AUTO) 0.8 10^3/uL (0.1-1.4); ABSOLUTE NEUT (AUTO) 9.3 10^3/uL (1.7-8.2); BASOPHILS % (AUTO) 0.3 % (0-2); EOSINOPHILS % (AUTO) 0.5 % (0-6); HEMOGLOBIN 14.4 g/dL (12.0-15.5); LYMPHOCYTES % (AUTO) 17.9 % (13-45); MEAN CORPUSCULAR HEMOGLOBIN 30.5 pg (27.0-33.4); MEAN CORPUSCULAR HGB CONC 33.3 g/dL (32.0-36.0); MEAN CORPUSCULAR VOLUME 92 fl (80-97); MONOCYTES % (AUTO) 6.3 % (3-13); RED BLOOD COUNT 4.72 10^6/uL (3.72-5.28); RED CELL DISTRIBUTION WIDTH 13.7 % (11.5-14.0); WHITE BLOOD COUNT 12.4 10^3/uL (4.0-10.5)
[2020-05-17 16:36] LABS: AMORPHOUS SEDIMENT,URINE TRACE /HPF; APPEARANCE,URINE CLOUDY; BILIRUBIN,URINE NEGATIVE (NEGATIVE); COLOR,URINE YELLOW; GLUCOSE, URINE NEGATIVE (NEGATIVE); KETONES,URINE NEGATIVE (NEGATIVE); LEUKOCYTE ESTERASE,URINE LARGE (NEGATIVE); NITRITE,URINE NEGATIVE (NEGATIVE); PROTEIN,URINE 30 mg/dL (NEGATIVE); URINE SPECIFIC GRAVITY 1.019; UROBILINOGEN,URINE NEGATIVE mg/dL (<2.0)
[2020-05-17 16:43] LABS: ANION GAP 11 (5-19); BLOOD UREA NITROGEN 14 mg/dL (7-20); CALCIUM 10.1 mg/dL (8.4-10.2); CARBON DIOXIDE 21 mmol/L (22-30); CHLORIDE 109 mmol/L (98-107); GLUCOSE 111 mg/dL (75-110); POTASSIUM 4.6 mmol/L (3.6-5.0)
[2020-05-17 16:51] LABS: PLATELET COUNT 295 10^3/uL (150-450)
[2020-05-17] MEDS ORDERED: HYDROCODONE/ACETAMINOPHEN 5-325 MG TABLET PO ONE (20:09)
[2020-05-17] MEDS ORDERED: ONDANSETRON 4 MG TAB.RAPDIS PO ONE (20:09)
--- NOTE | 2020-05-17 20:54 | RADIOLOGY REPORT (SQ) ---
EXAM DESCRIPTION: CT HEAD WITHOUT IV CONTRAST COMPLETED DATE/TME: 05/17/2020 20:30 CLINICAL HISTORY: 29 years, Female, [place], r facial/[place] pain COMPARISON: None. TECHNIQUE: Axial images without IV contrast. Sagittal coronal reconstruction. Images stored on PACS. All CT scanners at this facility use dose modulation, iterative reconstruction, and/or weight based dosing when appropriate to reduce radiation dose to as low as reasonably achievable (ALARA). FINDINGS: Normal size ventricles. No suspicious intra-axial or extra-axial abnormality. Paranasal sinuses, mastoid air cells and bony calvarium are unremarkable. IMPRESSION: Unremarkable noncontrast CT of the head.
[2020-05-17] MEDS ORDERED: AMOXICILLIN TR/POT CLAVULANATE 875-125 MG TAB PO ONE (21:47)
--- NOTE | 2020-05-17 21:48 | ER Document Report ---
ED ENT - General Chief Complaint: Ear Pain Stated Complaint: NECK,JAW,SHOULDER PAIN Time Seen by Provider: 05/17/20 19:51 Primary Care Provider: NAV UP PA-C [Primary Care Provider] - Follow up as needed BERT PERALTA MD [NO LOCAL MD] - Follow up as needed Mode of Arrival: Ambulatory Information source: Patient Notes: Patient presents complaining of right facial, severe headache and and neck pain off and on for the past 2 weeks. Patient states she does have a broken tooth that has been giving her problems. Patient reports nausea although vomited only yesterday. Patient denies any fever. Patient did see her doctor yesterday and was given a prescription for prednisone. Patient denies any improvement after taking the prednisone. Patient denies any fever. TRAVEL OUTSIDE OF THE [place] IN LAST 30 DAYS: No - HPI Patient complains to provider of: Dental problem, Other - Right facial pain Onset: Other - 2 weeks Onset/Duration: Waxing and waning Quality of pain: Sharp Pain Level: 5 Location of pain: Face, Jaw, Neck Associated symptoms: Broken tooth, Dental pain, Jaw pain, Neck pain. denies: Cough, Ear pain, Face swelling, Fever, Runny nose Similar symptoms previously: No Recently seen / treated by doctor: Yes - Related Data Allergies/Adverse Reactions: No Known Allergies Allergy (Verified 09/20/19 15:44) Home Medications: lyrica 75 mg TID, flexeril 5 mg PRN, esomeprazole mag, topiramate 50mg qhsbuspirone 15mg bid, fluoxetine 20mg daily, cyclobenzapr 5 mg bid prn, Past Medical History - General Information source: Patient - Social History Smoking Status: Never Smoker Chew tobacco use (# tins/day): No Frequency of alcohol use: Rare Drug Abuse: None Occupation: None Lives with: Spouse/Significant other Family History: Reviewed & Not Pertinent Renal/ Medical History: Denies: Hx Peritoneal Dialysis GI Medical History: Reports: Hx Gastroesophageal Reflux Disease, Hx Irritable Bowel Musculoskeletal Medical History: Reports Hx Arthritis Psychiatric Medical History: Reports: Hx Anxiety, Hx Depression Past Surgical History: Reports: Hx Appendectomy, Hx Cholecystectomy, Hx Gynecologic Surgery - ablation x 2, Hx Orthopedic Surgery - cyst from left wrist, Hx Tonsillectomy - t and a Review of Systems - Review of Systems Constitutional: No symptoms reported. denies: Fever EENT: Dental problem, Other - Right side facial pain. denies: Throat pain, Difficulty swallowing Cardiovascular: No symptoms reported Respiratory: No symptoms reported Gastrointestinal: Nausea. denies: Abdominal pain Genitourinary: No symptoms reported Female Genitourinary: No symptoms reported Musculoskeletal: Neck pain - Side neck tenderness Skin: No symptoms reported. denies: Rash Hematologic/Lymphatic: No symptoms reported Neurological/Psychological: Headaches Physical Exam - Vital signs Vitals: Temp Pulse Resp BP Pulse Ox 98.1 F 99 18 128/99 H 98 05/17/20 15:15 05/17/20 15:15 05/17/20 15:15 05/17/20 15:15 05/17/20 15:15 - General General appearance: Appears well, Alert In distress: None - HEENT Head: Normocephalic, Atraumatic Eyes: Normal Conjunctiva: Normal Extraocular movements intact: Yes Eyelashes: Normal Pupils: PERRL Ears: Normal External canal: Normal Tympanic membrane: Normal Nasal: Normal Mouth/Lips: Normal Mucous membranes: Normal Teeth diagram: 1 - Dental decay, fracture 2 - Dental decay, tenderness, no trismus, no sublingual or submental swelling Pharynx: Normal. No: Erythema, Peritonsillar abscess, Tonsillar hypertrophy Neck: Supple, Other - Sternocleidomastoid muscle tenderness with mild spasm - Respiratory Respiratory status: No respiratory distress Chest status: Nontender Breath sounds: Normal. No: Rales, Rhonchi, Stridor, Wheezing Chest palpation: Normal - Cardiovascular Rhythm: Regular Heart sounds: S1 appreciated, S2 appreciated - Back Back: Normal, Nontender - Extremities General upper extremity: Normal inspection, Normal strength General lower extremity: Normal inspection, Normal strength - Neurological Neuro grossly intact: Yes Cognition: Normal Orientation: AAOx4 Kerrie Coma Scale Eye Opening: Spontaneous Kerrie Coma Scale Verbal: Oriented [place] Coma Scale Motor: Obeys Commands [place] Coma Scale Total: 15 - Psychological Associated symptoms: Normal affect, Normal mood - Skin Skin Temperature: Warm Skin Moisture: Dry Skin Color: Normal Course - Re-evaluation Re-evalutation: 05/17/20 21:43 Patient with intermittent headache and facial pain in the distribution of the trigeminal nerve on the right side. Patient does have dental decay and fracture to the upper and lower jaw on the right side and does have tenderness to the right lower jaw. Patient without any dental abscess. No tenderness to TMJ joint. Patient without any focal neurologic deficits at this time. Discussed with patient possibility of possible trigeminal neuralgia versus dental pain. CT scan reviewed given patient's persistent headache symptoms for the past 2 weeks and severe headache pain. Patient reports pain is improved after pain medication was administered in the emergency department. Patient encouraged to follow-up with a dental care provider as well as her primary doctor for referral to neurology at this time. The patient presents with headache without signs of [employer] bleed, stroke, infection, or other serious etiology. The patient is neur ologically intact. Given the extremely low risk of these diagnoses further testing and evaluation for these possibilities does not appear to be indicated at this time. The patient has been instructed to return if the symptoms worsen or change in any way. - Vital Signs Vital signs: Temp Pulse Resp BP Pulse Ox 97.6 F 52 L 18 137/66 H 100 05/17/20 22:05 05/17/20 22:05 05/17/20 15:15 05/17/20 22:05 05/17/20 22:05 - Laboratory Results Result Diagrams: 05/17/20 16:04 05/17/20 16:04 Laboratory Results Interpreted: 05/17/20 05/17/20 05/17/20 16:04 16:04 16:04 WBC 12.4 H Absolute Neuts (auto) 9.3 H Chloride 109 H Carbon Dioxide 21 L Est GFR (MDRD) Non-Af 59 L Glucose 111 H Urine Protein 30 H Urine Blood MODERATE H Ur Leukocyte Esterase LARGE H 05/18/20 08:17 Labs- All tests 24 hr 05/17/20 05/17/20 05/17/20 16:04 16:04 16:04 WBC 12.4 H RBC 4.72 Hgb 14.4 Hct 43.2 MCV 92 MCH 30.5 MCHC 33.3 RDW 13.7 Plt Count 295 Lymph % (Auto) 17.9 Bibb % (Auto) 6.3 Eos % (Auto) 0.5 Baso % (Auto) 0.3 Absolute Neuts (auto) 9.3 H Absolute Lymphs (auto) 2.2 Absolute Monos (auto) 0.8 Absolute Eos (auto) 0.1 Absolute Basos (auto) 0.0 Seg Neutrophils % 75.0 Sodium 140.5 Potassium 4.6 Chloride 109 H Carbon Dioxide 21 L Anion Gap 11 BUN 14 Creatinine 1.09 Est GFR ( Amer) > 60 Est GFR (MDRD) Non-Af 59 L Glucose 111 H Calcium 10.1 Urine Color YELLOW Urine Appearance CLOUDY Urine pH 7.0 Ur Specific [place] 1.019 Urine Protein 30 H Urine Glucose (UA) NEGATIVE Urine Ketones NEGATIVE Urine Blood MODERATE H Urine Nitrite NEGATIVE Urine Bilirubin NEGATIVE Urine Urobilinogen NEGATIVE Ur Leukocyte Esterase LARGE H Urine WBC (Auto) 127 Urine RBC (Auto) 11 Urine Bacteria (Auto) 3+ Squamous Epi Cells Auto 20 Amorphous Sediment Auto TRACE Urine Mucus (Auto) RARE Urine Ascorbic Acid NEGATIVE Critical Laboratory Results Reviewed: No Critical Results - Radiology Results Critical Radiology Results Reviewed: No Critical Results Discharge - Discharge Clinical Impression: Facial pain, Pain due to dental caries Headache Qualifiers: Headache type: unspecified Headache chronicity pattern: unspecified pattern Intractability: not intractable Qualified Code(s): R51.9 - Headache, unspecified UTI (urinary tract infection) Qualifiers: Urinary tract infection type: site unspecified Hematuria presence: with hematuria Qualified Code(s): N39.0 - Urinary tract infection, site not specified Condition: Stable Disposition: HOME, SELF-CARE Instructions: Augmentin ([facility]), Dentist, Headache ([facility]), Toothache ([facility]), Urinary Tract Infection ([facility]) Additional Instructions: Return immediately for any new or worsening symptoms Followup with your primary care provider, call tomorrow to make a followup appointment Follow-up with dental care provider for further evaluation. Follow-up with neurology for any persistent pain or problems. Prescriptions: Amoxicillin/Potassium Clav [Augmentin 875-125 Tablet] 1 tab PO BID #20 tab Hydrocodone/Acetaminophen [[place] 5-325 mg Tablet] 1 tab PO Q6 PRN #12 tablet PRN Reason: Referrals: NAV UP PA-C [Primary Care Provider] - Follow up as needed BERT PERALTA MD [NO LOCAL MD] - Follow up as needed
[2020-05-17 22:13] VITALS: BP 137/66
== END 2020-05-17 22:13 | disposition home or self-care (01) ==
LOC: ER 15:10
DX: K02.9 Dental caries, unspecified (principal); R51.9 Headache, unspecified; N39.0 Urinary tract infection, site not specified; R31.9 Hematuria, unspecified; M54.2 Cervicalgia; R11.0 Nausea; K08.89 Other specified disorders of teeth and supporting structures; R68.84 Jaw pain; K21.9 Gastro-esophageal reflux disease without esophagitis; F32.9 Major depressive disorder, single episode, unspecified; Z79.899 Other long term (current) drug therapy
CPT/HCPCS: 99284; 36415; 87086; 85025; 87088; 80048; 81001; 70450; S0119; J3490